=== PATIENT | female | born 1935 | race Caucasian/White ===

== ENCOUNTER 2018-07-13 14:35 | Emergency (ER) | payer MEDICARE ==
[~2018-07-13] VITALS: Ht 152.4 cm; Wt 56.7 kg
--- OUTSIDE RECORDS SUMMARY | 2018-07-13 14:38 | XMS REPORT | Clinical Summary ---
Author Author [facility] Address Unknown Phone Unavailable Care Team Providers Care Program Specialist Name Role Phone Asked, No Pcp PCP Unavailable Allergies No Known Allergies Medications End Date Status Medication Sig Dispensed Refills Start Date 06/03/2018 Discontinued predniSONE (DELTASONE) 10 2 tabs BID x4 38 tablet 0 06/03/201 mg tablet days, then 9 take 2 tabs in AM and 1 tab in PM x4 days, then take 1 tab BID x4 days, then take 1 tab daily x2 days 06/03/2018 Discontinued famotidine (PEPCID) 20 MG Take 1 tablet 28 tablet 0 tablet (20 mg total) 9 by mouth 2 (two) times a day for 14 days. 06/17/2018 famotidine (PEPCID) 20 MG Take 1 tablet 28 tablet 0 tablet (20 mg total) 9 by mouth 2 (two) times a day for 14 days. 06/17/2018 predniSONE (DELTASONE) 2 tabs BID x4 38 tablet 0 2.5 mg tablet days, then 9 take 2 tabs in AM and 1 tab in PM x4 days, then take 1 tab BID x4 days, then take 1 tab daily x2 days Active Problems Not on file Encounters Care Team Description Date Type Specialty Pal Ambrosio MD Contact dermatitis due to poison [place] (Primary Dx) 06/03/2018 Emergency Emergency Medicine after 07/12/2017 Social History Date Tobacco Use Types Packs/Day Years Used Never Smoker Smokeless Tobacco: Never Used Alcohol Use Drinks/Week oz/Week Comments No Alcohol Habits Answer Date Recorded How often do you have a drink containing alcohol? Never 06/03/2018 How many drinks containing alcohol do you have on Not asked a typical day when you are drinking? How often do you have six or more drinks on one Not asked occasion? Sex Assigned at Date Recorded Not on file Industry Job Start Date Occupation Not on file Not on file Not on file Travel End Travel History Travel Start No recent travel history available. Last Filed Vital Signs Time Taken Vital Sign Reading 06/03/2018 10:15 AM [employer] Blood Pressure 160/78 06/03/2018 10:15 AM [employer] Pulse 60 06/03/2018 9:36 AM [employer] Temperature 36.2 C (97.1 F) 06/03/2018 10:15 AM [employer] Respiratory Rate 18 06/03/2018 10:15 AM [employer] Oxygen Saturation 100% - Inhaled Oxygen - Concentration - Weight - 06/03/2018 9:35 AM [employer] Height 152.4 cm (5') - Body Mass Index - Plan of Treatment Not on file Results Not on fileafter 07/12/2017 Insurance Payer Benefit Subscriber ID Type Phone Address Plan / Group MEDICARE MEDICARE xxxxxxxxxxx Medicare [place], [place] PART A AND B BCBS BCBS xxxxxxxxxxxx PPO CHOICE PPO/[employer] PPO Advance Directives Patient has advance care planning documents on file. For more information, sherine story contact: Ariel Feng [id number] [place] [address]
--- NOTE | 2018-07-13 16:31 | Diagnostic Imaging Report ---
Exam: Head CT without contrast History: Trauma, fall Comparison studies: None Technique: Axial images were obtained from the skull base to the vertex. Coronal and sagittal images reconstructed from the axial data. Dose modulation, iterative reconstruction, and/or weight based adjustment of the mA/kV was utilized to reduce the radiation dose to as low as reasonably achievable. Radiation dose: Total DLP: 1019 mGy*cm. Estimated effective dose: DLP x 0.015 Intravenous contrast: None Findings: Scalp: No abnormalities. Bones: No fractures, blastic or lytic lesions. Brain sulci: Mildly prominent. Ventricles: Normal in size and configuration. No hydrocephalus. Extra-axial spaces: No masses, no fluid collection. Parenchyma: No abnormal densities. No masses, hemorrhage, acute or chronic vascular insults. Sellar/suprasellar region: No abnormalities. Craniocervical junction: Patent foramen magnum. No Chiari one malformation. Incidental findings: Lens replacements for previous cataract surgery. Atherosclerotic calcifications in the carotid siphons. Nonspecific inflammatory mucosal thickening in the sphenoid sinuses. IMPRESSION: 1. No acute abnormalities. 2. Mild generalized cerebral volume loss. Signed by: Dr. Edson Knott M.D. on 07/13/2018 4:28 PM
--- NOTE | 2018-07-13 16:40 | Diagnostic Imaging Report ---
History: Trauma, fall Comparison studies: None Technique: Axial images were obtained through the cervical region. Coronal and sagittal images reconstructed from the axial data. Intravenous contrast: None Findings: Atlantoaxial normal cervical lordosis. Minimal retrolisthesis of C3 on C4 and C4 on C5 is most likely degenerative in etiology. Cervicomedullary junction: No abnormalities. Patent foramen magnum. Soft tissues: No gross abnormalities. Vertebrae: Bones are demineralized. No fractures. Degenerative changes: Moderately degenerated C3-C4 disc. Mildly degenerated disc at C2-C3 and from C4 to C7. Disc osteophyte complexes from C3 to C6 in combination with small left central disc protrusion at C4-C5, small partially calcified central disc protrusion at C5-C6 and thickened and ossified ligamentum flavum at C5-C6. 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 Mild multilevel facet arthrosis. Incidental findings: Mucosal thickening in the partially imaged sphenoid sinuses. 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 IMPRESSION: 1. No cervical spine fracture or acute subluxation. 2. Multilevel degenerative changes as described. 3. Please note, ligament, spinal cord or vascular abnormalities cannot be excluded on the basis of this exam. Signed by: Dr. Edson Knott M.D. on 07/13/2018 4:37 PM
[2018-07-13] MEDS ORDERED: BACITRACIN ZINC 0.9GM TP ONE (17:45)
== END 2018-07-13 18:00 | disposition home or self-care (01) ==
LOC: ER 14:35
DX: S00.511A Abrasion of lip, initial encounter (principal); S60.512A Abrasion of left hand, initial encounter; S60.511A Abrasion of right hand, initial encounter; W01.0XXA Fall on same level from slipping, tripping and stumbling without subsequent striking against object, initial encounter; Y93.01 Activity, walking, marching and hiking; Y92.481 Parking lot as the place of occurrence of the external cause
CPT/HCPCS: 70450; 72125; 99284